=== PATIENT | male | born 1990 | race Caucasian/White ===

== ENCOUNTER 2017-03-12 11:26 | Emergency (ER) | payer OTHER ==
--- NOTE | 2017-03-12 13:10 | UC ---
Knee Pain HPI - HPI Summary HPI Summary: complaint of left knee pain that started today was standing on a woddne pallet at work took a step and pallet broke stepped down suddenly and twisted his knee outward occurred at 7:45 this morning was able to ambulated after incident not swollen pain is underneath knee cap constant aching pain in knee cap used some ice on knee without relief partial torn menisus repair and partial ACL tear in the past - History of Current Complaint Chief Complaint: UCLowerExtremity Stated Complaint: LEFT KNEE PAIN (WC) Time Seen by Provider: 03/12/17 13:00 Hx Obtained From: Patient - Allergies/Home Medications Allergies/Adverse Reactions: Allergies Allergy/AdvReac Type Severity Reaction Status Date / Time No Known Allergies Allergy Verified 03/12/17 11:48 Home Medications: Home Medications NK [No Home Medications Reported] 03/12/17 [History Confirmed 03/12/17] PMH/Surg Hx/FS Hx/Imm Hx Previously Healthy: Yes Respiratory History: Asthma - Surgical History Surgical History: Yes Surgery Procedure, Year, and Place: deviated septum repair, left knee surgery - Family History Known Family History: Positive: Cardiac Disease Negative: Hypertension, Diabetes - Social History Occupation: Employed Full-time Lives: With Family Alcohol Use: Rare Substance Use Type: None Smoking Status (MU): Never Smoked Tobacco Review of Systems Constitutional: Negative Skin: Negative Eyes: Negative ENT: Negative Respiratory: Negative Cardiovascular: Negative Gastrointestinal: Negative Genitourinary: Negative Motor: Negative Neurovascular: Negative Musculoskeletal: Other: - left knee pain Neurological: Negative Psychological: Negative All Other Systems Reviewed And Are Negative: Yes Physical Exam Triage Information Reviewed: Yes Appearance: No Pain Distress, Well-Nourished Vital Signs: Initial Vital Signs Temp 98.4 F 03/12/17 11:46 Pulse 80 03/12/17 11:46 Resp 16 03/12/17 11:46 BP 148/86 03/12/17 11:46 Pulse Ox 95 03/12/17 11:46 Vital Signs Reviewed: Yes Eyes: Positive: Conjunctiva Clear ENT: Positive: Pharynx normal, TMs normal Neck: Positive: No Lymphadenopathy Respiratory: Positive: Lungs clear, Normal breath sounds, No respiratory distress, No accessory muscle use Cardiovascular: Positive: RRR, No Murmur, Pulses Normal Abdomen Description: Positive: Nontender, Soft Bowel Sounds: Positive: Present Musculoskeletal: Positive: Other: - LLE-No bony deformities, No bakers cyst. Full ROM (extension/flexion). Limited internal and external rotation. lateral ligament tenderness , tenderness accross above and below patella Medial, lateral meniscus; anterior, posterior cruciate ligaments ,medial & lateral collateral ligaments intact as assessed with negative Anterior/Posterior Drawer signs, Lachmans, and McMurrays Tests. No effusion, bulge/balloon sign. Neurological: Positive: Alert Skin Exam: Normal Knee Pain Course/Dx - Differential Dx/Diagnosis Differential Diagnosis/HQI/PQRI: Fracture (Closed), Internal Derangement Of Knee , Sprain, Strain Provider Diagnoses: left internal derangement of knee Discharge - Discharge Plan Condition: Stable Disposition: HOME Patient Education Materials: Knee Pain (ED), RICE Therapy (ED) Referrals: Jose Elias Jacobs PA [Primary Care Provider] - Ander Vance MD [Medical Doctor] - Additional Instructions: Your blood pressure is elevated. Please contact your primary care provider within 1 -4 weeks for further evaluation.
--- NOTE | 2017-03-12 13:50 | RAD ---
INDICATION: Left knee injury. TECHNIQUE: 4 views of the left knee were obtained. FINDINGS: The bones are in normal alignment. No joint effusion or fracture is seen. Joint spaces appear maintained. IMPRESSION: NO EVIDENCE FOR FRACTURE.
[2017-03-12 14:38] VITALS: BP 138/77
== END 2017-03-12 14:36 | disposition home or self-care (01) ==
LOC: UCCORT 11:26
DX: M23.92 Unspecified internal derangement of left knee (principal); R03.0 Elevated blood-pressure reading, without diagnosis of hypertension
CPT/HCPCS: 99211; G0463

== ENCOUNTER 2018-03-07 14:08 | Emergency (ER) | payer OTHER ==
[2018-03-07 14:24] VITALS: BP 148/94
[2018-03-07] MEDS ORDERED: Ibuprofen TAB* 600 MG PO ONE (15:01)
--- NOTE | 2018-03-07 15:04 | UC ---
Skin Complaint HPI - HPI Summary HPI Summary: Patient presents to urgent care reporting a soft tissue mass on his distal sternum. Patient states he first noticed it approximately 3 months ago. Patient states he thinks it's gotten bigger. His patient's visit time it's painful particularly when he is playing with his kids or lifting something heavy. Patient denies any shortness of breath. Or patient denies redness or drainage. No fevers or chills. No known direct trauma. No nausea or vomiting. Does not take analgesia for it. Patient states it hurts the most after he's been touching it. No other lesions noted. Patient has a PCP but has not mentioned it to this provider. Patient's medications reviewed this visit. - History of Current Complaint Chief Complaint: UCSkin Time Seen by Provider: 03/07/18 14:47 Stated Complaint: LUMP IN CHEST Hx Obtained From: Patient Onset/Duration: Gradual Onset, Lasting Weeks Onset Severity: Mild Current Severity: Mild Pain Intensity: 8 Pain Scale Used: 0-10 Numeric Location: Discrete - Allergy/Home Medications Allergies/Adverse Reactions: Allergies Allergy/AdvReac Type Severity Reaction Status Date / Time No Known Allergies Allergy Verified 03/07/18 14:24 Home Medications: Home Medications Gemfibrozil TAB* [Lopid TAB*] 600 mg PO BID 03/07/18 [History Confirmed ] amLODIPine TAB* [Norvasc 5 mg TAB*] 5 mg PO DAILY 03/07/18 [History Confirmed ] Review of Systems Constitutional: Negative Skin: Other - distal sterum - soft tissue Eyes: Negative ENT: Negative Respiratory: Negative Cardiovascular: Negative Gastrointestinal: Negative Genitourinary: Negative Motor: Negative Neurovascular: Negative Musculoskeletal: Negative Neurological: Negative Psychological: Negative All Other Systems Reviewed And Are Negative: Yes PMH/Surg Hx/FS Hx/Imm Hx Endocrine History: Dyslipidemia Cardiovascular History: Hypertension - borderline - Surgical History Surgical History: Yes Surgery Procedure, Year, and Place: deviated septum repair, left knee surgery - Family History Known Family History: Positive: Cardiac Disease Negative: Hypertension, Diabetes - Social History Occupation: Employed Full-time Lives: With Family Alcohol Use: Rare Substance Use Type: None Smoking Status (MU): Never Smoked Tobacco Physical Exam - Summary Physical Exam Summary: Vital Signs Reviewed: Yes A+Ox3, no distress Eyes: Conjunctiva Clear, JOSE. EOM intact and full ENT: Hearing grossly normal, mmoist Neck: Positive: Supple Respiratory: Positive: No respiratory distress, No accessory muscle use + CTA throughout no w/r Cardiovascular: RRR nl s1, s2 no m/r CBT <2 sec abd soft + BS nt/nd no guarding, no distension Musculoskeletal Exam: VANN x 4 without difficulty Strength Intact, ROM Intact Neurological: Positive: Alert, + sensation throughout Psychological: Positive: Normal Response To Family Skin: Positive: no rash, no ecchymosis, Pt with palpable, mild fullness to anterior to xyphoid process. small, mobile, minimally tender lesion at site of concern. No palpable, discernable lesion. mild tender with palpation. No warmth , no erythema. Triage Information Reviewed: Yes Vital Signs: Initial Vital Signs Temp 99.5 F 03/07/18 14:18 Pulse 80 03/07/18 14:18 Resp 16 03/07/18 14:18 BP 148/94 03/07/18 14:18 Pulse Ox 97 03/07/18 14:18 Diagnostics - Radiology Order Information: US CHEST Xray Interpretation: Positive (See Comments) - Order Information: US CHEST Accession Number: [id number] CPT: 37934 Indication: Painful palpable lump extending caudal from the inferior aspect of the sternum. Comparison: No relevant prior exams available on the [facility] [place] for comparison. Technique: Ultrasound of the region of palpable concern in the midline inferior to the sternum. Report: Corresponding with the region of clinical concern within the deep aspect of the subcutaneous tissue plane there is a well-circumscribed approximate 3.2 cm AP by 6 cm transverse by 8 cm cephalocaudal structure which is grossly isointense with subcutaneous fat and devoid of intrinsic vascularity on Doppler. No conspicuous calcifications or other complex elements evident. No discrete extension of the lesion from the peritoneal cavity through a rent in the fascia or interval change in size with Valsalva maneuver to suggest hernia. 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 No findings to confirm that this represents a hernia although this remains in the differential. Given presence of pain consider contrast- enhanced CT or MRI to further characterize the lesion and assess for potential sonographic occult hernia. <Electronically signed by Mckinley Alfredo MD in [place]> 03/07/181558 Dictated By: Mckinley Alfredo MD Dictated Date/Time: 03/07/181558 Transcribed Date/Time: 03/07/181554 Copy to: Radiology Interpretation Completed By: Radiologist Re-Evaluation - Re-Evaluation First Eval Re-Evaluation Time: 16:13 Comment: reviewed us with pt. heat. stretch. pcp f/u. if discomfort persists , pcp may order additional imaging. pt comfortable and in agreement with plan. Pt requesting note for work -left early to come here today Course/Dx - Course Course Of Treatment: Patient with palpable soft tissue mass anterior xiphoid process. No concern for infection on exam. Mild tender to palpation. Discussed with patient differential point. Will check an ultrasound. Pending ultrasound what either recommend patient follow up PCP, general surgery, for dermatology. Patient comfortable the plan. Will give some anti-inflammatory as patient will have ultrasound in the pressure may be uncomfortable. - Diagnoses Provider Diagnoses: lipoma anterior chest wall Discharge - Sign-Out/Discharge Documenting (check all that apply): Discharge/Admit/Transfer - Discharge Plan Condition: Stable Disposition: HOME Patient Education Materials: Lipoma (ED) Forms: *Gen. Provider Communication Referrals: Jose Elias Jacobs PA [Primary Care Provider] - Additional Instructions: The ultrasound found what appearted to be a fatty tumor (lipoma). these are not dangerours oc concerning. The following is reommended: -Okay to alternate ibuprofen (Advil, Motrin)600mg and Tylenol every 3 hours for pain. Take with food. Do NOT take for more than 4-5 days. - Apply warm heat to the area. Once muscles are warm, slow gentle stretching exercises are important - Avoid trauma to the area. - Contact your doctor to schedule a follow-up appointment. If it gets larger, causes significant pain or you have other concern your primary provider may consider ordering additional imaging such as a CT scan to further evaluate. - Billing Disposition and Condition Condition: STABLE Disposition: Home
--- NOTE | 2018-03-07 16:03 | RAD ---
Indication: Painful palpable lump extending caudal from the inferior aspect of the sternum. Comparison: No relevant prior exams available on the [facility] [place] for comparison. Technique: Ultrasound of the region of palpable concern in the midline inferior to the sternum. Report: Corresponding with the region of clinical concern within the deep aspect of the subcutaneous tissue plane there is a well-circumscribed approximate 3.2 cm AP by 6 cm transverse by 8 cm cephalocaudal structure which is grossly isointense with subcutaneous fat and devoid of intrinsic vascularity on Doppler. No conspicuous calcifications or other complex elements evident. No discrete extension of the lesion from the peritoneal cavity through a rent in the fascia or interval change in size with Valsalva maneuver to suggest hernia. 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 No findings to confirm that this represents a hernia although this remains in the differential. Given presence of pain consider contrast-enhanced CT or MRI to further characterize the lesion and assess for potential sonographic occult hernia.
== END 2018-03-07 16:14 | disposition home or self-care (01) ==
LOC: UCCORT 14:08
DX: D17.1 Benign lipomatous neoplasm of skin and subcutaneous tissue of trunk (principal); I10 Essential (primary) hypertension; E78.5 Hyperlipidemia, unspecified
CPT/HCPCS: 76604; 99212; A9270-GY; G0463